=== PATIENT | female | born 1980 | race Caucasian/White ===

== ENCOUNTER 2017-09-11 10:43 | Inpatient (IN) ==
[2017-09-10 12:18] LABS: Basophils % 0.6 % (0.0-0.8); Eosinophils % 0.6 % (0.00-10.9); Hematocrit 39.3 VOL% (35.7-47.0); Hemoglobin 12.8 GM/DL (12.0-16.0); Immature Granulocytes % 0.4 %; Immature Granulocytes Absolute 0.02 #; Lymphocytes # 1.5 10*3/uL (1.4-4.0); Lymphocytes % 28.2 % (21.3-54.2); Mean Corpuscular HGB Conc 32.6 GM/DL (32-36); Mean Corpuscular Hemoglobin 27 PG (27-34); Mean Corpuscular Volume 83.8 FL (87-102); Mean Platelet Volume 9.5 FL (9.6-12.0); Monocytes # 0.4 10*3/uL (0.11-0.8); Monocytes % 7.8 % (1.7-12.7); Neutrophils # 3.3 10*3/uL (1.4-7.4); Neutrophils % 62.4 % (38.7-73.9); Platelet Count 228 T/CUMM (130-400); Red Blood Count 4.69 MC/CUMM (3.8-5.5); Red Cell Distribution Width 16.9 % (9.3-17.3); White Blood Count 5.3 T/CUMM (4-12)
[2017-09-10 12:46] LABS: Calcium 9.1 MG/DL (8.5-10.1); Osmolality,Calculated 274.5 MOS/KG (273-304); Potassium 4.3 MMOL/L (3.5-5.1)
[~2017-09-11 10:43] MED LIST: VANCOMYCIN INJ 1,000 MG in SODIUM CHLORIDE 0.9% 250 ML IV ONE
[2017-09-11] MEDS ORDERED: DIAZEPAM 5 MG TABLET PO ONE (11:54)
[2017-09-11] MEDS ORDERED: LACTATED RINGERS 1,000 ML IV SCH (12:00)
[2017-09-11] MEDS ORDERED: DIAZEPAM 5 MG TABLET ONE (12:12)
[2017-09-11] MEDS ORDERED: VANCOMYCIN 1,000 MG VIAL ONE (12:12)
[2017-09-11] MEDS ORDERED: TISSUE ADHESIVE 1 EACH APPLICATOR TOP ONE (13:56)
[2017-09-11] MEDS ORDERED: ONDANSETRON 4 MG/2 ML VIAL IV PRN ×2 (14:39→15:35)
[2017-09-11] MEDS ORDERED: MORPHINE 4 MG/1 ML VIAL IV PRN (14:39)
[2017-09-11] MEDS ORDERED: ACETAMINOPHEN 325 MG TABLET PO PRN (14:39)
[2017-09-11] MEDS ORDERED: HYDROmorphone 2 MG/1 ML VIAL ONE (14:51)
[2017-09-11] MEDS ORDERED: fentaNYL 100 MCG/2 ML VIAL ONE (14:51)
[2017-09-11] MEDS ORDERED: MIDAZOLAM 2 MG/2 ML VIAL ONE (14:51)
[2017-09-11] MEDS ORDERED: DEXAMETHASONE 10 MG/1 ML VIAL ONE (14:51)
[2017-09-11] MEDS ORDERED: ONDANSETRON 4 MG/2 ML VIAL ONE ×2 (14:51→15:43)
[2017-09-11] MEDS ORDERED: PROPOFOL 200 MG/20 ML VIAL IV ONE (14:51)
[2017-09-11] MEDS ORDERED: SEVOFLURANE 1 UNIT/15 MINUTE INH ONE (14:51)
[2017-09-11] MEDS ORDERED: GLYCOPYRROLATE 0.4 MG/2 ML VIAL ONE (14:52)
[2017-09-11] MEDS ORDERED: LACTATED RINGERS 1,000 ML IV ONE (14:52)
[2017-09-11] MEDS ORDERED: KETOROLAC 30 MG/1 ML VIAL ONE (14:52)
[2017-09-11] MEDS ORDERED: PHENYLEPHRINE 1 MG/10 ML SYRINGE IV ONE (14:52)
[2017-09-11] MEDS ORDERED: ROCURONIUM 100 MG/10 ML VIAL IV ONE (14:52)
[2017-09-11] MEDS ORDERED: NEOSTIGMINE 10 MG/10 ML VIAL ONE (14:52)
[2017-09-11] MEDS ORDERED: diphenhydrAMINE 50 MG/1 ML VIAL ONE (15:31)
[2017-09-11] MEDS ORDERED: diphenhydrAMINE 50 MG/1 ML VIAL IV PRN (15:35)
[2017-09-11] MEDS ORDERED: MEPERIDINE 25 MG/1 ML VIAL IV PRN (15:35)
[2017-09-11] MEDS ORDERED: MEPERIDINE 25 MG/1 ML VIAL ONE (15:43)
[2017-09-11] MEDS: LACTATED RINGERS 1,000 ML IV SCH ×2 (17:40→23:08)
[2017-09-11] MEDS: PIPERACILLIN/TAZOBACTAM 3,375 MG in SODIUM CHLORIDE 0.9% 100 ML IV SCH (17:51)
[2017-09-11] MEDS: KETOROLAC 15 MG/1 ML VIAL IV SCH (20:36)
[2017-09-11] MEDS: VANCOMYCIN INJ 1,250 MG in SODIUM CHLORIDE 0.9% 250 ML IV SCH (22:10)
[2017-09-12] MEDS: PIPERACILLIN/TAZOBACTAM 3,375 MG in SODIUM CHLORIDE 0.9% 100 ML IV SCH ×3 (02:15→18:24)
[2017-09-12] MEDS: KETOROLAC 15 MG/1 ML VIAL IV SCH ×4 (04:21→22:08)
[2017-09-12 05:52] LABS: Basophils % 0.1 % (0.0-0.8); Hematocrit 34.5 VOL% (35.7-47.0); Hemoglobin 10.9 GM/DL (12.0-16.0); Immature Granulocytes % 0.6 %; Immature Granulocytes Absolute 0.09 #; Lymphocytes # 0.6 10*3/uL (1.4-4.0); Lymphocytes % 3.6 % (21.3-54.2); Mean Corpuscular HGB Conc 31.6 GM/DL (32-36); Mean Corpuscular Hemoglobin 27 PG (27-34); Mean Corpuscular Volume 84.6 FL (87-102); Mean Platelet Volume 10.8 FL (9.6-12.0); Monocytes # 0.5 10*3/uL (0.11-0.8); Monocytes % 3.2 % (1.7-12.7); Neutrophils # 14.6 10*3/uL (1.4-7.4); Neutrophils % 92.5 % (38.7-73.9); Platelet Count 190 T/CUMM (130-400); Red Blood Count 4.08 MC/CUMM (3.8-5.5); Red Cell Distribution Width 17.1 % (9.3-17.3); White Blood Count 15.8 T/CUMM (4-12)
[2017-09-12 06:17] LABS: Band Neutrophils 10 % (0-10); Calcium 8.2 MG/DL (8.5-10.1); Hypochromasia 1+; Lymphocytes 6 % (20-55); Microcytosis 1+; Osmolality,Calculated 279.3 MOS/KG (273-304); Ovalocytes Slight; Potassium 4.1 MMOL/L (3.5-5.1); Segmented Neutrophils 78 % (50-85); Total Cells Counted 100
[2017-09-12 06:18] LABS: Platelet Estimate Adequate
[2017-09-12] MEDS: PANTOPRAZOLE 40 MG VIAL IV SCH (09:08)
[2017-09-12] MEDS: VANCOMYCIN INJ 1,250 MG in SODIUM CHLORIDE 0.9% 250 ML IV SCH ×2 (09:20→22:08)
[2017-09-13] MEDS: KETOROLAC 15 MG/1 ML VIAL IV SCH ×4 (02:38→22:00)
[2017-09-13] MEDS: PIPERACILLIN/TAZOBACTAM 3,375 MG in SODIUM CHLORIDE 0.9% 100 ML IV SCH ×2 (02:40→12:25)
[2017-09-13 03:21] LABS: Basophils % 0.4 % (0.0-0.8); Eosinophils # 0.1 10*3/uL (0.0-0.87); Eosinophils % 0.7 % (0.00-10.9); Hemoglobin 11.1 GM/DL (12.0-16.0); Immature Granulocytes % 0.3 %; Immature Granulocytes Absolute 0.02 #; Lymphocytes # 0.4 10*3/uL (1.4-4.0); Lymphocytes % 5.6 % (21.3-54.2); Mean Corpuscular HGB Conc 32.6 GM/DL (32-36); Mean Corpuscular Hemoglobin 28 PG (27-34); Mean Corpuscular Volume 84.2 FL (87-102); Mean Platelet Volume 9.9 FL (9.6-12.0); Monocytes # 0.4 10*3/uL (0.11-0.8); Monocytes % 4.6 % (1.7-12.7); Neutrophils # 6.8 10*3/uL (1.4-7.4); Neutrophils % 88.4 % (38.7-73.9); Platelet Count 170 T/CUMM (130-400); Red Blood Count 4.04 MC/CUMM (3.8-5.5); Red Cell Distribution Width 17.5 % (9.3-17.3); White Blood Count 7.6 T/CUMM (4-12)
[2017-09-13] MEDS: LACTATED RINGERS 1,000 ML IV SCH (06:41)
[2017-09-13] MEDS: PANTOPRAZOLE 40 MG VIAL IV SCH (09:52)
[2017-09-13] MEDS: VANCOMYCIN INJ 1,250 MG in SODIUM CHLORIDE 0.9% 250 ML IV SCH ×2 (09:57→22:16)
[2017-09-14] MEDS: PIPERACILLIN/TAZOBACTAM 3,375 MG in SODIUM CHLORIDE 0.9% 100 ML IV SCH ×3 (00:20→13:00)
[2017-09-14] MEDS: KETOROLAC 15 MG/1 ML VIAL IV SCH ×3 (06:34→15:00)
[2017-09-14] MEDS: PANTOPRAZOLE 40 MG VIAL IV SCH (09:16)
[2017-09-14] MEDS: VANCOMYCIN INJ 1,250 MG in SODIUM CHLORIDE 0.9% 250 ML IV SCH (11:21)
[2017-09-14 13:06] VITALS: BP 110/75
== END 2017-09-14 15:44 | disposition home health service (06) | DRG 989 ==
LOC: N.OR 10:43 → N.3E 10:43 → N.SDSINP 10:44 → N.3E 14:39
PROVIDERS: ADMIT Surgery; ATTEND Surgery